=== PATIENT | male | born 1950 | race Caucasian/White ===

== ENCOUNTER → 2019-06-22 07:12 | Outpatient (CLI) | payer OTHER, SELFPAY ==
--- NOTE | 2019-06-23 17:50 | DI.NM.S_ITS ---
DATE OF SERVICE: 06/22/2019 PROCEDURE: Exercise perfusion study. INDICATIONS: Shortness of breath with hypertension, hyperlipidemia. RADIOPHARMACEUTICAL: 25.3 millicurie technetium-99m Myoview IV was injected at stress and 25.0 millicurie technetium-99m Myoview IV was injected at rest. FINDINGS: CARDIAC STRESS:: The patient underwent exercise perfusion study under the supervision of an attending staff. The patient walked on Víctor protocol for 6 minutes and achieved 89 percent of target heart rate. Baseline blood pressure 150/86. Peak blood pressure 210/88, suggestive of hypertensive blood pressure response. No chest discomfort. The patient has shortness of breath. Oxygen saturation on room air 95 percent. Baseline EKG revealed sinus rhythm. During stress, there was artifact seen, however, no convincing ischemic changes seen. Occasional PVCs. No ventricular tachycardia. RAW DATA:: There is increased subdiaphragmatic activity. The patient patient's weight is 246 pounds. GATED STUDY:: Resting LV ejection fraction 58 percent and stress LV ejection fraction 60 percent without any obvious wall motion abnormalities. Lung-heart ratio 0.46, which is mildly abnormal. No transient ischemic dilatation. TID ratio is 0.91, which is within normal limits. Resting end-diastolic volume 170 mL. MYOCARDIAL PERFUSION:: Stress supine, resting supine and stress prone images were compared to each other. During stress supine and resting supine images, there was mildly decreased perfusion of distal anteroseptal wall, which got improved during prone images, suggestive of tissue attenuation artifact. However, there is a mildly reversible defect of the inferior wall, as well, which was not improved during prone images. CONCLUSION: I will call this study at an abnormal myocardial perfusion study with mild reversible perfusion defect of the inferior wall consistent with ischemia. The patient's weight is 246 pounds. There is increased subdiaphragmatic activity. There is a possibility of tissue attenuation artifact, as well. However, it did not get better during prone and I am seeing some reversibility. Lung-heart ratio 0.46, suggestive of elevated LV filling pressure. Correlate clinically and get a 2D echo to make sure there is no diastolic dysfunction or valvular pathology. Ceferino Marcum - TITA/john/patito doc#: [id number]/job#: [id number] dd: 06/23/2019 16:37:00 dt: 06/23/2019 17:38:00 DICTATING MD/COPIES TO: Omari Johnson MD; Keon Mathis MD COPIES MNE: RAHEEL;
== END ==
PROVIDERS: Family Provider Family Medicine; PCP Family Medicine; Referring Provider Family Medicine; Visit Provider Family Medicine
DX: R06.02 Shortness of breath (principal); I10 Essential (primary) hypertension; E78.5 Hyperlipidemia, unspecified; R94.39 Abnormal result of other cardiovascular function study
CPT/HCPCS: 78452; 93017; A9502